=== PATIENT | male | born 1970 | race Caucasian/White ===

== ENCOUNTER 2022-05-24 11:18 | Day surgery (SDC) | payer OTHER ==
[~2022-05-24] VITALS: Ht 170.2 cm; Wt 172.4 kg
[2022-05-24] MEDS ORDERED: fentaNYL citrate 0.05 MG/ML VIAL ONE (13:17)
[2022-05-24] MEDS ORDERED: MIDAZOLAM 5 MG/5 ML VIAL ONE (13:17)
[2022-05-24] MEDS ORDERED: fentaNYL citrate 0.05 MG/ML VIAL IVP ONE ×2 (14:25→16:35)
[2022-05-24] MEDS ORDERED: MIDAZOLAM 5 MG/5 ML VIAL IV ONE ×2 (14:25→16:35)
== END 2022-05-24 15:00 | disposition home or self-care (01) ==
LOC: MDS 11:18 → MMU 11:20 → MDS 15:00
PROVIDERS: ATTEND Internal Medicine Gastroenterology
DX: K22.0 Achalasia of cardia (principal)
CPT/HCPCS: 36415; 43233; 43239; 86677; C1727; J2250; J3010

== ENCOUNTER 2023-07-22 12:01 | Day surgery (SDC) | payer OTHER ==
[~2023-07-22] VITALS: Ht 170.2 cm; Wt 188.2 kg
[2023-07-22] MEDS ORDERED: MIDAZOLAM 2 MG/2 ML VIAL ONE (13:24)
[2023-07-22] MEDS ORDERED: fentaNYL citrate 0.05 MG/ML VIAL ONE (13:25)
[2023-07-22] MEDS ORDERED: MIDAZOLAM 2 MG/2 ML VIAL IVP ONE (14:35)
== END 2023-07-22 14:50 | disposition home or self-care (01) ==
LOC: MDS 12:01 → MMU 12:40 → MDS 14:50
PROVIDERS: ATTEND Internal Medicine Gastroenterology
DX: K22.0 Achalasia of cardia (principal); K21.9 Gastro-esophageal reflux disease without esophagitis; E78.5 Hyperlipidemia, unspecified; G47.00 Insomnia, unspecified; Z88.8 Allergy status to other drugs, medicaments and biological substances; Z79.899 Other long term (current) drug therapy
CPT/HCPCS: 43235; J2250; J3010

== ENCOUNTER 2023-12-26 08:50 | Day surgery (SDC) | payer OTHER ==
[~2023-12-26] VITALS: Ht 170.2 cm; Wt 186.4 kg
[2023-12-26] MEDS ORDERED: MIDAZOLAM 5 MG/5 ML VIAL ONE (11:53)
[2023-12-26] MEDS ORDERED: fentaNYL citrate 0.05 MG/ML VIAL ONE (11:53)
[2023-12-26] MEDS ORDERED: MIDAZOLAM 2 MG/2 ML VIAL IVP ONE (18:30)
[2023-12-26] MEDS ORDERED: fentaNYL citrate 0.05 MG/ML VIAL IVP ONE (18:30)
== END 2023-12-26 13:05 | disposition home or self-care (01) ==
LOC: MDS 08:50 → MMU 08:51 → MDS 13:05
PROVIDERS: ATTEND Internal Medicine Gastroenterology
DX: K22.0 Achalasia of cardia (principal); F41.9 Anxiety disorder, unspecified; K21.9 Gastro-esophageal reflux disease without esophagitis; Z88.1 Allergy status to other antibiotic agents; Z79.899 Other long term (current) drug therapy
CPT/HCPCS: 43249; J2250; J3010